=== PATIENT | female | born 2000 | race Two or more races ===

== ENCOUNTER 2020-01-28 02:08 | Emergency (ER) | payer SELFPAY ==
[~2020-01-28] VITALS: Ht 154.9 cm; Wt 65.9 kg
[2020-01-28 02:09] VITALS: BP 114/66
== END 2020-01-28 04:51 | disposition left against medical advice (07) ==
LOC: M ED 02:08
DX: Z53.21 Procedure and treatment not carried out due to patient leaving prior to being seen by health care provider (principal)